=== PATIENT | male | born 1995 | race Caucasian/White ===

== ENCOUNTER → 2019-03-25 13:04 | Outpatient (CLI) | payer MEDICAID, SELFPAY | PROVIDERS: PCP Family Medicine; Visit Provider Family Medicine | DX: R76.8 Other specified abnormal immunological findings in serum | CPT/HCPCS: 36415 ==

== ENCOUNTER 2020-04-08 12:39 | Emergency (ER) | payer MEDICAID, SELFPAY ==
[2020-04-08 12:50] VITALS: BP 126/69; PULSE 74; RESP 16; TEMP 36.7; O2SAT 98; BMI 19.8
--- NOTE | 2020-04-08 12:57 | XR_ITS ---
PROCEDURE: XR CHEST 2V CLINICAL HISTORY: headache/cough COMPARISON: XR CHEST PORTABLE from 02/19/2020 FINDINGS: The cardiomediastinal silhouette and pulmonary vascularity are within normal limits. The lungs are clear without infiltrates, suspicious nodules, or pleural effusions. Calcified granuloma is present in the right midlung laterally. No acute bony findings. IMPRESSION: No acute findings. Dictated by: John Nettles MD 04/08/2020 13:58 Electronically signed by John Nettles MD in [place] 04/08/2020 13:58
--- NOTE | 2020-04-08 13:14 | [facility].EDGENADL ---
ED Disposition Clinical Impression: Gastroenteritis Pharyngitis Qualifiers: Pharyngitis/tonsillitis etiology: unspecified etiology Qualified Code(s): J02.9 - Acute pharyngitis, unspecified Disposition: Home, Self-Care Condition on Discharge: Good Instructions: DI for Viral Gastroenteritis -- Adult, DI for Viral Pharyngitis Additional Instructions: Off work for 2 days. Rest and drink plenty of fluids. Tylenol or ibuprofen for sore throat. You have been tested for COVID-19 and will be contacted with test results. Test results take approximately 24 hours. Isolate yourself until results are known. Referrals: Karyn Castillo [Primary Care Provider] - Forms: Work/School Release - Critical Care Critical Care Time: No Attestation: On 04/08/20, the high probability of a clinically significant, sudden or life threatening deterioration of the following system(s) required my full and direct attention, intervention and personal management. The time I documented below is in addition to time spent performing reported procedures but includes the following listed in this critical care notation. Medical Decision Making - Medical Records Medical records reviewed: Yes: I reviewed the patient's medical records. - Roland Inquiry Pt receiving controlled substance: No Vital Signs: 04/08/20 12:50 04/08/20 14:11 Temperature 98.0 F 98 F Temperature Source Oral Oral Pulse Rate 83 Pulse Rate [Right Brachial] 74 Respiratory Rate 16 16 Blood Pressure 130/73 Blood Pressure [Right Arm] 126/69 Blood Pressure Mean [Right Arm] 88 Blood Pressure Source [Right Arm] Automatic Cuff Blood Pressure Position Sitting Blood Pressure Position [Right Arm] Sitting 02 Sat by Pulse Oximetry 98 Oxygen Delivery Method Room Air Room Air - Lab Data Lab results reviewed: Yes: I reviewed the patient's lab results. Lab Results 04/08/20 12:48: Influenza Type A Ag Negative, Influenza Type B Ag Negative 04/08/20 12:48: Group A Strep Rapid Negative Orders (Tests/Meds): ORDERS Category Date Time Status SARS-CoV-2, LES Stat Lab 04/08/20 13:45 Received Strep Screen Confirmation Stat Micro 04/08/20 12:48 Received - Radiology Data #1 Image(s): Chest Image Reviewed: Yes I reviewed the patient's radiology image Preliminary Findings: Normal/NAD General Adult HPI - General Chief complaint: Upper Respiratory Infection Stated complaint: sore throat,cough,headache,diarrhea Time Seen by Provider: 04/08/20 13:14 Mode of Arrival: Ambulatory Limitations: No Limitations Description of Symptoms (Recalled from ER Triage Doc. by RN): PT c/o headache, chills, sore throat, and diarrhea since Monday. PT advises he works at [employer] - History of Present Illness HPI narrative: 2-day history of sore throat with swallowing, red throat, mild cough, vomiting, and diarrhea. Denies fever. He is able to drink liquids but says that the only thing solid he can eat his oatmeal. He works at [employer] but has no known specific exposures. He has HIV. He was tested for COVID on 02/19/2020 at [facility] and was negative. - Related Data Home Medications Medication Instructions Recorded Confirmed abacavir 600 mg-dolutegravir 50 1 tab PO DAILY 07/02/19 02/19/20 mg-lamivudine 300 mg tablet clonidine HCl 0.1 mg tablet 0.1 mg PO QHS 07/02/19 02/19/20 Allergies Allergy/AdvReac Type Severity Reaction Status Date / Time aripiprazole [From Abilify] Allergy Intermediate Verified 04/08/20 12:58 [facility] History - Hepatitis A Screen Drug use history?: No High risk sexual behaviors?: No History of sexually transmitted infection?: No Currently employed?: No Childcare worker?: No Do you have indoor plumbing?: Yes Do you have electricity?: Yes Attestation statement:: This patient has been screened for Hepatitis A risk factors. I have reviewed the patient's past medical history: Yes Medical History: Denies:: Cancer, Diabetes Mellitu
[2020-04-08 13:20] LABS: Strep Scrn Group A (Rapid) Negative (Negative)
--- NOTE | 2020-04-08 13:32 | PC.NURSE ---
contacted COVID nurse (Maria Alejandra) per ER MD request to test pt. Stated okay to test pt.
[2020-04-08 14:11] VITALS: BP 130/73; PULSE 83; RESP 16; TEMP 36.6; O2SAT 98
[2020-04-09 14:17] LABS: Covid-19 Nasal PCR Sendout Lex NOT DETECTED
== END 2020-04-08 14:12 | disposition home or self-care (01) ==
PROVIDERS: Emergency Provider Emergency Medicine; PCP Family Medicine
DX: K52.9 Noninfective gastroenteritis and colitis, unspecified (principal); J02.9 Acute pharyngitis, unspecified; Z88.8 Allergy status to other drugs, medicaments and biological substances
CPT/HCPCS: 71046; 87275; 87276; 87430; 99283; U0004